=== PATIENT | female | born 1970 ===

== ENCOUNTER 2025-08-25 05:25 | Day surgery (SDC) | payer OTHER ==
[2025-08-25] MEDS ORDERED: CIPROFLOXACIN IN 5 % DEXTROSE 400 MG/200 ML PIGGYBAG IV ONE (05:58)
[2025-08-25] MEDS ORDERED: SUGAMMADEX SODIUM 200 MG/2 ML VIAL IV ONE (08:30)
== END 2025-08-25 12:00 | disposition home or self-care (01) ==
LOC: CIR.AMB 05:25
PROVIDERS: ATTEND Surgery
DX: K81.1 Chronic cholecystitis (principal)